=== PATIENT | male | born 1950 | race Caucasian/White ===

== ENCOUNTER → 2023-11-14 13:56 | Outpatient (REF) | payer MEDICARE, BC, SELFPAY | LOC: RAD 13:56 | PROVIDERS: ATTENDING PHYSICIAN Family Medicine | DX: G71.00 Muscular dystrophy, unspecified (principal); M62.81 Muscle weakness (generalized); M85.89 Other specified disorders of bone density and structure, multiple sites | CPT/HCPCS: 77080 ==

== ENCOUNTER → 2025-01-27 10:42 | Outpatient (REF) | payer MEDICARE, BC, SELFPAY | LOC: RCS 10:42 | PROVIDERS: ATTENDING PHYSICIAN Specialist; FAMILY PHYSICIAN Family Medicine | DX: H18.22 Idiopathic corneal edema (principal) | CPT/HCPCS: 93005 ==